=== PATIENT | male | born 1950 | race Caucasian/White ===

== ENCOUNTER 2024-12-02 08:38 | Day surgery (SDC) | payer MEDICARE, OTHER ==
[~2024-12-02 08:38] MED LIST: Lactated Ringers 1,000 ML IV SCH
[2024-12-02] MEDS ORDERED: Propofol 200 MG/20 ML SDV ONE (08:55)
[2024-12-02] MEDS: Lactated Ringers 1,000 ML IV SCH (09:10)
[2024-12-02] MEDS ORDERED: fentaNYL 100 MCG/2 ML SDV ONE (09:20)
[2024-12-02 11:39] VITALS: PULSE 52
[2024-12-02 11:41] VITALS: BP 145/75
== END 2024-12-02 12:25 | disposition home or self-care (01) ==
LOC: VM.SDS 08:38
PROVIDERS: ATTEND Family Medicine
DX: Z12.11 Encounter for screening for malignant neoplasm of colon (principal); D12.3 Benign neoplasm of transverse colon; D12.4 Benign neoplasm of descending colon; K63.5 Polyp of colon; K64.9 Unspecified hemorrhoids; K57.30 Diverticulosis of large intestine without perforation or abscess without bleeding; I10 Essential (primary) hypertension; E78.5 Hyperlipidemia, unspecified; E66.9 Obesity, unspecified; F17.290 Nicotine dependence, other tobacco product, uncomplicated; F17.210 Nicotine dependence, cigarettes, uncomplicated; Z68.28 Body mass index [BMI] 28.0-28.9, adult; Z79.899 Other long term (current) drug therapy
CPT/HCPCS: 00811; 45380; 45385; 88305; 99100; J2704; J3010; J7120